=== PATIENT | female | born 2000 | race Caucasian/White ===

== ENCOUNTER 2025-01-19 19:36 | Emergency (ER) | payer OTHER ==
[~2025-01-19] VITALS: Ht 165.1 cm; Wt 219.5 kg
[2025-01-19 20:24] VITALS: BP 147/75; TEMP 98.1; O2SAT 97
[2025-01-19] MEDS ORDERED: FLUC200T PO (21:19)
== END 2025-01-19 21:42 | disposition home or self-care (01) ==
LOC: ER 19:52
DX: L30.9 Dermatitis, unspecified (principal); F17.290 Nicotine dependence, other tobacco product, uncomplicated; F19.10 Other psychoactive substance abuse, uncomplicated; L02.91 Cutaneous abscess, unspecified; R73.9 Hyperglycemia, unspecified; Z88.0 Allergy status to penicillin
CPT/HCPCS: 82962-TC